=== PATIENT | male | born 1975 | race Caucasian/White ===

== ENCOUNTER 2020-09-14 10:05 | Inpatient (IN) | payer MEDICAID, SELFPAY ==
[~2020-09-14] VITALS: Ht 165.1 cm; Wt 114.8 kg
[2020-09-14 10:05] VITALS: BP 117/71
--- NOTE | 2020-09-14 10:05 | NUR ---
Patient BIBA ALS, transferred to bed 3. Dr. Tovar and RN are evaluating the patient at bedside.
[2020-09-14 10:10] VITALS: BP 125/82
--- NOTE | 2020-09-14 10:10 | NUR ---
BIBA ON CPAP PT WAS THEN PLACED ON VISION BIPAP SETTING 09/04 RR12 FIO2 100% ALARMS ON AND AUDIBLE BIPAP IS PLUGGED INTO RED OUTLET, B\S ARE DIMINISHED BILATERALLY, PT IS WEARING LARGE FACEMASK WILL CONTINUE TO MONITOR PT
[2020-09-14] MEDS ORDERED: ONDANSETRON 4 MG/2 ML VIAL IVP STA (10:11)
[2020-09-14] MEDS ORDERED: DEXAMETHASONE 10 MG/ML VIAL IVP STA (10:11)
[2020-09-14] MEDS ORDERED: OLANZapine 5 MG ODT SL ONE (10:15)
[2020-09-14] MEDS ORDERED: ASPIRIN 81 MG TAB.CHEW PO STA (10:17)
[2020-09-14] MEDS ORDERED: ACETAMINOPHEN EXTRA STRENGTH 500 MG TAB ONE (10:19)
[2020-09-14] MEDS ORDERED: AZITHROMYCIN 1,000 MG in DEXTROSE 5% 500 ML IV ONE (10:20)
--- NOTE | 2020-09-14 10:30 | NUR ---
44 Y/O BIBA FROM HOME FOR SOB/RESP DISTRESS X2 DAYS. RESP EVEN AND LABORED. TEMP 101.2 ORAL. LUNG SOUNDS DIMINISHED BILATERALLY. SKIN IS DIAPHORETIC. PT IS TACHYPNEIC AT THIS TIME, PLACED IN HIGH FOWLERS. HR IS SINUS TACH @ 150. CAP REFILL <3. PULSES PALPABLE +4.
--- NOTE | 2020-09-14 10:34 | NUR ---
RT AT BEDSIDE
[2020-09-14] MEDS ORDERED: cefTRIAXone 1,000 MG VIAL ONE (10:45)
--- NOTE | 2020-09-14 10:45 | NUR ---
PATIENT ATTEMPTING TO TAKE OFF BIPAP MASK, PT INSTRUCTED TO KEEP MASK ON. AAOX3.
[2020-09-14 10:54] LABS: HEMATOCRIT 51.9 % (36-52); HEMOGLOBIN 17.5 g/dL (12.0-18.0); MEAN CORPUSCULAR HEMOGLOBIN 31 pg (27-31); MEAN CORPUSCULAR HGB CONC 34 g/dL (33-37); MEAN CORPUSCULAR VOLUME 93.1 fL (80-94); PLATELET COUNT (AUTO) 287 K/uL (140-450); RED BLOOD CELL COUNT(AUTO) 5.57 MIL/uL (4.20-6.10); RED CELL DISTRIBUTION WIDTH 14.6 % (11.6-13.7); WHITE BLOOD COUNT (AUTO) 18.9 K/uL (4.8-10.8)
[2020-09-14] MEDS ORDERED: ACETAMINOPHEN 650 MG/20.3 ML UDC PO STA (10:54)
[2020-09-14] MEDS ORDERED: LORazepam 2 MG/ML VIAL IVP ONE (10:55)
--- NOTE | 2020-09-14 10:58 | NUR ---
Dr. Tovar is reevaluating the patient at bedside.
[2020-09-14 11:20] LABS: EOSINOPHILS % (MANUAL) 1 % (0-4); LYMPHOCYTES % (MANUAL) 8 % (20-46); MONOCYTES % (MANUAL) 5 % (5-12)
[2020-09-14 11:40] LABS: D-DIMER > 5000 ng/ml (0-400)
[2020-09-14 11:56] LABS: RSV NEGATIVE (NEGATIVE)
[2020-09-14 12:00] LABS: LACTATE DEHYDROGENASE 709 U/L (85-227)
--- NOTE | 2020-09-14 12:05 | NUR ---
UNABLE TO OBTAIN URINE SAMPLE AT THIS TIME
--- NOTE | 2020-09-14 12:06 | NUR ---
PT IS ATTEMPTING TO PULL OFF BIPAP MASK AT THIS TIME, INSTRUCTED IMPORTANCE OF KEEPING MASK ON. PT IS UNABLE TO FOLLOW COMMANDS AT THIS TIME. AAOX2
[2020-09-14 12:10] LABS: ALBUMIN 2.7 g/dL (3.4-5.0); ANION GAP 17.6 (8-16); CARBON DIOXIDE 22.4 mmol/L (21-32); CREATININE 1.4 mg/dL (0.6-1.3); TOTAL BILIRUBIN 0.6 mg/dL (0.0-1.0)
--- NOTE | 2020-09-14 13:08 | NUR ---
UNABLE TO OBTAIN URINE SAMPLE AT THIS TIME
[2020-09-14] MEDS ORDERED: HEPARIN PER PHARMACY MC PRN (13:15)
[2020-09-14] MEDS ORDERED: hePARIN / DEXT 5% PREMIX 250 ML IV ONE (13:15)
[2020-09-14 14:43] LABS: C-REACTIVE PROTEIN QUANT 20.8 mg/dL (0.0-0.9)
[2020-09-14] MEDS ORDERED: ALBUTEROL HFA MDI 90 MCG/ACTUATION 8 GM INH PRN (14:50)
[2020-09-14] MEDS ORDERED: DOCUSATE SODIUM 100 MG GELCAP PO PRN (14:50)
[2020-09-14] MEDS ORDERED: ONDANSETRON 4 MG/2 ML VIAL IM/IVP PRN (14:50)
[2020-09-14] MEDS ORDERED: POTASSIUM CHLORIDE 10 MEQ TABER PO PRN (14:50)
[2020-09-14] MEDS ORDERED: HYDROcodone/APAP 7.5/325 MG 1 TAB PO PRN (14:50)
[2020-09-14] MEDS ORDERED: ACETAMINOPHEN 325 MG TAB PO PRN (14:50)
[2020-09-14] MEDS ORDERED: NACL 0.9% 1,000 ML IV SCH (14:50)
[2020-09-14 14:57] LABS: FIBRINOGEN 617 mg/dL (200-400)
--- NOTE | 2020-09-14 15:25 | NUR ---
Patient appears to be resting comfortably in bed. Vital Signs within normal limits. Respirations even and unlabored.
[2020-09-14 15:36] VITALS: BP 104/62
[2020-09-14 16:33] LABS: CHOL/HDL RATIO 7.7 (1-4.5); FREE T4 (FREE THYROXINE) 1.68 ng/dL (0.76-1.46); MAGNESIUM 2.3 mg/dL (1.8-2.4); PHOSPHORUS 3.6 mg/dL (2.5-4.9); THYROID STIMULATING HORMONE 0.14 uIU/mL (0.34-3.74)
--- NOTE | 2020-09-14 17:44 | NUR ---
RESPIRATIONS REMAIN LABORED AND TACHYPNEIC, PT IS POSITIONED SITTING UP IN HIGH FOWLERS AT THIS TIME. WILL CONTINUE TO MONITOR
--- NOTE | 2020-09-14 17:48 | NUR ---
ADDED EMERGENCY CONTACTS CARSON JOSE [phone]
--- NOTE | 2020-09-14 18:39 | NUR ---
RESP EVEN AND LABORED/TACHYPNEIC. URINE COLLECTED AT THIS TIME. PT AWAKE AND ALERT, NO LONGER ATTEMPTING TO TAKE OFF BIPAP.
[2020-09-14 18:50] VITALS: BP 111/81
--- NOTE | 2020-09-14 18:58 | NUR ---
PATIENT PLACED PRONE AT THIS TIME
--- NOTE | 2020-09-14 19:30 | NUR ---
RECEIVED REPORT FROM SONIA HARRISON FOR CONTINUATION OF CARE.
--- NOTE | 2020-09-14 19:42 | NUR ---
PT IS RESTING IN PRONE POSITION. BED IS LOCKED AND IN LOWEST POSITION. PT IS CONNECTED TO THE VETERINARY VIROLOGIST. SAO2@91%. WILL CONTINUE TO MONITOR.
--- NOTE | 2020-09-14 20:30 | NUR ---
PT IS LAYING ON HIS LEFT SIDE. VISIBLE RISE AND FALL OF CHEST NOTED. BED IS LOCKED AND IN LOWEST POSITION. PT IS CONNECTED TO THE FOUNDER CEO & PRESIDENT. SAO2@91% ON BIPAP. CALL LIGHT WITHIN REACH. WILL CONTINUE TO MONITOR.
--- NOTE | 2020-09-14 21:30 | NUR ---
PT IS LAYING ON HIS LEFT SIDE. VISIBLE RISE AND FALL OF CHEST NOTED. BED IS LOCKED AND IN LOWEST POSITION. PT IS CONNECTED TO THE HOE WORKER. SAO2@93% ON BIPAP. CALL LIGHT WITHIN REACH. WILL CONTINUE TO MONITOR
--- NOTE | 2020-09-14 22:30 | NUR ---
PT IS LAYING ON HIS LEFT SIDE. VISIBLE RISE AND FALL OF CHEST NOTED. BED IS LOCKED AND IN LOWEST POSITION. PT IS CONNECTED TO THE HYDROGEOLOGY PROFESSOR. SAO2@92% ON BIPAP. CALL LIGHT WITHIN REACH. WILL CONTINUE TO MONITOR
--- NOTE | 2020-09-14 23:30 | NUR ---
PT IS LAYING ON HIS ABD. VISIBLE RISE AND FALL OF CHEST NOTED. BED IS LOCKED AND IN LOWEST POSITION. PT IS CONNECTED TO THE TUNNEL FORM PLACING SUPERVISOR. SAO2@91% ON BIPAP. CALL LIGHT WITHIN REACH. WILL CONTINUE TO MONITOR
--- NOTE | 2020-09-15 00:30 | NUR ---
PT IS LAYING ON HIS LEFT SIDE. VISIBLE RISE AND FALL OF CHEST NOTED. BED IS LOCKED AND IN LOWEST POSITION. PT IS CONNECTED TO THE REHAB PHYSICIAN. SAO2@90% ON BIPAP. CALL LIGHT WITHIN REACH. WILL CONTINUE TO MONITOR
--- NOTE | 2020-09-15 01:30 | NUR ---
PT IS LAYING ON HIS LEFT SIDE. VISIBLE RISE AND FALL OF CHEST NOTED. BED IS LOCKED AND IN LOWEST POSITION. PT IS CONNECTED TO THE SUBWAY TRAIN DRIVER. SAO2@91% ON BIPAP. CALL LIGHT WITHIN REACH. WILL CONTINUE TO MONITOR
[2020-09-15 01:49] VITALS: BP 114/70
--- NOTE | 2020-09-15 02:30 | NUR ---
PT IS LAYING ON HIS LEFT SIDE. VISIBLE RISE AND FALL OF CHEST NOTED. BED IS LOCKED AND IN LOWEST POSITION. PT IS CONNECTED TO THE WINDER HELPER. SAO2@93% ON BIPAP. CALL LIGHT WITHIN REACH. WILL CONTINUE TO MONITOR
--- NOTE | 2020-09-15 03:00 | NUR ---
PT REMAINS ON BIPAP. PT STILL GETS SOB WITH PHYSICAL EXERTION. FOLLOWS COMMANDS. HEPARIN DRIP CONT.
--- NOTE | 2020-09-15 03:29 | NUR ---
GAVE REPORT TO SONIA CERDA FOR TRANSFER OF CARE AT THIS TIME.
--- NOTE | 2020-09-15 03:30 | NUR ---
received report from brigitte navarro.
[2020-09-15 03:55] VITALS: BP 105/85
--- NOTE | 2020-09-15 06:00 | NUR ---
PT CHANGED, REPOSTIONED, AND PROVIDED WITH NEW SHEETS.
--- NOTE | 2020-09-15 06:54 | NUR ---
PATIENT HAS BEEN SCREENED AND CATEGORIZED MODERATE NUTRITION RISK. PATIENT WILL BE SEEN WITHIN 3-5 DAYS OF ADMISSION. 09/17/20 - 09/19/20 GWYN MOCK MBA, RD
--- NOTE | 2020-09-15 07:30 | NUR ---
HEPARIN DRIP HELD AT THIS TIME D/T NO UPDATED PTT LABS. CONTACTED
--- NOTE | 2020-09-15 07:34 | NUR ---
ASSUMED CARE OF PATIENT AT THIS TIME
[2020-09-15 08:07] LABS: T4 (THYROXINE) 8.8 ug/dL (4.5-12.0)
--- NOTE | 2020-09-15 09:07 | NUR ---
PT REMOVED BIPAP MASK OFF SELF, INSTRUCTED PT TO KEEP MASK ON D/T HYPOXIC STATE
[2020-09-15] MEDS ORDERED: cefTRIAXone 1,000 MG VIAL ONE (09:13)
[2020-09-15 09:24] LABS: BASOPHILS % (AUTO) 0.2 % (0.0-2.0); EOSINOPHILS % (AUTO) 0.1 % (0.0-4.0); HEMATOCRIT 48.5 % (36-52); HEMOGLOBIN 16.3 g/dL (12.0-18.0); LYMPHOCYTES # (AUTO) 0.7 K/uL (2.0-11.5); LYMPHOCYTES % (AUTO) 3.9 % (20.5-51.1); MEAN CORPUSCULAR HEMOGLOBIN 32 pg (27-31); MEAN CORPUSCULAR HGB CONC 34 g/dL (33-37); MEAN CORPUSCULAR VOLUME 94.6 fL (80-94); MONOCYTES # (AUTO) 0.5 K/uL (0.8-1.0); MONOCYTES % (AUTO) 3.1 % (1.7-9.3); NEUTROPHILS % (AUTO) 92.7 % (42.2-75.2); PLATELET COUNT (AUTO) 245 K/uL (140-450); RED BLOOD CELL COUNT(AUTO) 5.12 MIL/uL (4.20-6.10); RED CELL DISTRIBUTION WIDTH 14.7 % (11.6-13.7); WHITE BLOOD COUNT (AUTO) 17.3 K/uL (4.8-10.8)
[2020-09-15] MEDS: AZITHROMYCIN 250 MG TAB PO SCH (09:33)
[2020-09-15] MEDS: ASCORBIC ACID 500 MG TAB PO SCH (09:33)
[2020-09-15] MEDS: ZINC SULF 220 MG CAP PO SCH (09:33)
[2020-09-15 09:36] LABS: MAGNESIUM 2.6 mg/dL (1.8-2.4); PHOSPHORUS 3.4 mg/dL (2.5-4.9)
--- NOTE | 2020-09-15 11:02 | NUR ---
Patient appears to be resting comfortably in bed. Vital Signs within normal limits. Respirations even and unlabored.
--- NOTE | 2020-09-15 11:53 | NUR ---
SOCIAL WORK NOTE: Patient's Orientation Unable To Assess Information Provided By VAN JOSE - DAUGHTER Comments SW WAS UNABLE TO MEET PATIENT AT BEDSIDE DUE TO MEDICAL CONDITION. SW HAD ASSESSMENT WITH PATIENT'S DAUGHTER. Machine Grainer, Realtionship and Phone Number VAN JOSE DAUGHTER [phone] Healthcare Power of Spaghetti Machine Operator No Does Patient Have a POLST No Identifying Problems No Social Work Triggers Is A Social Work Consult Needed No Mandate Report Filed No Explanation Of Identifying Problems PATIENT IS A 44-YEAR-OLD MALE ADMITTED FOR ACUTE RESPIRATORY FAILURE. PATIENT HAS NO REPORTED PMHX. PATIENT'S DAUGHER REPORTED NO HISTORY OF SUBSTANCE ABUSE OR MENTAL HEALTH. Admitted From Home Pre-Admission Level Of Functioning Status Independent/Ambulatory Prior Resources/Services Used In Last 12 Months No Prior Resources Used Prior DME No Prior DME Used Dialysis Comments N/A Living Situation Lives With Family Mobile Home Other Living Situation/Comment PATIENT'S DAUGHTER REPORTED THAT PATIENT LIVES WITH HER AND HER MOTHER. Patient Had Caregiver No Home Support No Caregiver Issues Financial Issues No Known Financial Issue Referral To The Financial Counselor Needed No Factors/Needs No D/C Needs Identified Pt/Rep Participated In Discharge Plan Yes Patient/Family Agress With Discharge Plan Yes Discharge Plan Comments TENTATIVE DISCHARGE PLAN IS FOR PATIENT TO RETURN HOME. DC Plan Status Initiated
--- NOTE | 2020-09-15 12:00 | NUR ---
HEPARIN DRIP CONTINUED PER UPDATED PTT LABS
--- NOTE | 2020-09-15 12:11 | NUR ---
PT IS RESTING IN BED, HIGH FOWLERS, WITH BIPAP ON. NO ACUTE DISTRESS NOTED AT THIS TIME.
--- NOTE | 2020-09-15 13:56 | NUR ---
LUNCH TRAY PROVIDED AT BEDSIDE, PATIENT STATES HE IS NOT HUNGRY AT THIS TIME. TOOK OFF BIPAP MASK TO TRY AND ENCOURAGE PATIENT TO EAT, PT DRANK TWO CUPS OF WATER. VSS. BED IN LOWEST POSITION. NO ACUTE DISTRESS AT THIS TIME
--- NOTE | 2020-09-15 16:24 | NUR ---
PATIENT SITTING UP HIGH FOWLERS IN BED. RESP LABORED. BIPAP MASK IN PLACE. WATER AND FOOD PROVIDED TO PATIENT, HOWEVER PT IS STILL NOT HUNGRY AT THIS TIME.
--- NOTE | 2020-09-15 16:41 | NUR ---
DC PLANNIN YRS OLD MALE PATIENT ADMITTED FROM HOME WITH A DX OF ACUTE RESP FAILURE, PNEUMONIA R/O COVID. PT HAS NO MEDICAL HISTORY. CXR SHOWED POSSIBLE PNEUMONIA. RAPID COVID TEST NEGATIVE PCR IS PENDING. CURRENTLY ON BIPAP FIO2 100%. ADMINISTERED IV ABX ROCEPHIN AND AZITHROMYCIN . CONSULTED WITH CIVIL ENGINEER IN TRAINING FOR ELEVATED TROPONIN , PULMO AND ID. DC PLAN PER PT RESPONDING THE TREATMENT. CM TO FOLLOW Addendum: 09/20/20 at 1241 by Ambreen Garcia CM REMAINS ORALLY INTUBATED TO VENT, FIO2 100%, PEEP 14, O2 SAT 78%. SEDATED WITH PROPOFOL. ON HEPARIN DRIP. ON AZITHROMYCIN, REMDESIVIR, ROCEPHIN. LATEST CXR SHOWED WORSENED LEFT LUNG CONSOLIDATION, THERE IS IMPROVED AERATION OF THE RIGHT LUNG.
--- NOTE | 2020-09-15 19:20 | NUR ---
RECIEVED REPORT FROM HUNTER SCOTT FOR CONTINUITY OF CARE. PT A&0X4. PT ON BIPAP MACHINE. O2 SATURATION AT 90%. IV SITES LAC 16 G, INTACT PATENT, GOOD BLOOD RETURN. LHAND 22 G INFUSING HEPARIN DRIP AT 1500 UNITS/HR.
--- NOTE | 2020-09-15 21:30 | NUR ---
PT REQUESTING FOR WATER. PT TOLERATED WELL. WILL CONTINUE TO MONITOR.
[2020-09-15 23:05] VITALS: BP 121/83
--- NOTE | 2020-09-15 23:10 | NUR ---
RECEIVED CALL FROM PT'S DAUGHTER, LAUREN. UPDATED ON PT STATUS. ALL QUESTIONS AND CONCERNS ANSWERED AT THIS TIME.
--- NOTE | 2020-09-16 01:30 | NUR ---
PT HAS EYES CLOSED, ON BIPAP. O2 SATURATION 90%. SAFETY PRECAUTIONS IN PLACE. WILL CONTINUE TO MONITOR.
--- NOTE | 2020-09-16 03:20 | NUR ---
PT HAS EYES CLOSED, ON BIPAP. O2 SATURATION 90%. SAFETY PRECAUTIONS IN PLACE. WILL CONTINUE TO MONITOR.
--- NOTE | 2020-09-16 04:00 | NUR ---
LAB AT BEDSIDE
[2020-09-16 04:04] VITALS: BP 105/59
--- NOTE | 2020-09-16 05:00 | NUR ---
PTT 42.1. HEPARIN BOLUS 3300 UNITS GIVEN. AND HEPARIN DRIP INCREASED FROM 1800 UNITS TO 1200 UNITS. WILL CONTINUE TO MONITOR. Addendum: 09/16/20 at 1041 by [facility] PTT 42.1. HEPARIN BOLUS 3300 UNITS GIVEN. AND HEPARIN DRIP INCREASED FROM 1800 UNITS TO 2000 UNITS. WILL CONTINUE TO MONITOR.
--- NOTE | 2020-09-16 05:00 | NUR ---
URINE SPECIMEN COLLECTED AND SENT TO LAB
--- NOTE | 2020-09-16 07:18 | NUR ---
REPORT GIVEN TO MARIAMA SCOTT FOR CONTINUITY OF CARE
[2020-09-16 07:19] LABS: BARBITURATE, URINE NEGATIVE ng/ml (NEG <=200); BENZODIAZEPINE, URINE NEGATIVE ng/mL (NEG <=200); CANNABINOID, URINE NEGATIVE ng/mL (NEG <=50); COCAINE, URINE NEGATIVE ng/mL (NEG <=300); OPIATE, URINE NEGATIVE ng/mL (NEG <=2000); PHENCYCLIDINE SCREEN,URINE NEGATIVE ng/mL (NEG <=25)
[2020-09-16 07:22] LABS: APPEARANCE,URINE CLEAR (CLEAR); BILIRUBIN,URINE NEGATIVE (NEGATIVE); BLOOD, URINE NEGATIVE (NEGATIVE); COLOR,URINE YELLOW (YELLOW); LEUKOCYTE ESTERASE ,URINE NEGATIVE (NEGATIVE); NITRITE, URINE NEGATIVE (NEGATIVE); UGLUCOSE NEGATIVE (NEGATIVE)
--- NOTE | 2020-09-16 07:46 | NUR ---
RECEIVED REPORT FROM SONIA BURTON AND [facility]
--- NOTE | 2020-09-16 09:15 | NUR ---
GAVE PT MORNING MEDS. PT DESATED TO MID 50S WHEN BIPAP WAS TAKEN OFF. PT O2 LEVELS STABLE WHEN BIPAP WAS PLACED BACK ON
[2020-09-16] MEDS: AZITHROMYCIN 250 MG TAB PO SCH (09:27)
[2020-09-16] MEDS: ASCORBIC ACID 500 MG TAB PO SCH (09:27)
[2020-09-16] MEDS: ZINC SULF 220 MG CAP PO SCH (09:27)
[2020-09-16] MEDS ORDERED: cefTRIAXone 1,000 MG VIAL ONE (09:32)
--- NOTE | 2020-09-16 10:21 | NUR ---
PT REQUESTING WATER. PT TOLERATED WELL. PT DESATED TO 78 OFF BIPAP
[2020-09-16 11:04] VITALS: BP 95/49
--- NOTE | 2020-09-16 11:23 | NUR ---
PT IS RESTING WITH EYES CLOSED, ON BIPAP. O2 SATURATION 89%. SAFETY PRECAUTIONS IN PLACE.
[2020-09-16 12:22] VITALS: BP 119/79
--- NOTE | 2020-09-16 13:15 | NUR ---
PT DAUGHTER CALLED FOR UPDATES
--- NOTE | 2020-09-16 13:25 | NUR ---
OFFERED PT LUNCH TRAY. PT REFUSED. ADVISED THAT HE HAS NO APPETITE AT THIS TIME. OFFERED OTHER ALTERNATIVES AND PT DECLINED.
--- NOTE | 2020-09-16 14:15 | NUR ---
PT SLEEPING WITH BIPAP IN PLACE. O2 SATURATION 89%. BEDRAILS UP X2 AND BED IN LOWEST POSITION FOR SAFETY.
[2020-09-16] MEDS: hePARIN / DEXT 5% PREMIX 250 ML IV SCH (15:52)
--- NOTE | 2020-09-16 17:28 | NUR ---
PT IN BED AWAKE AND ALERT. PT REQUESTED WATER AND TOLERATED WELL. PT ON BIPAP. SIDE RAILS UP AND BED IN LOWEST POSITION. ALL PT NEEDS MET AT THIS TIME.
[2020-09-16 18:50] LABS: PROTHROMBIN TIME 10.4 secs (10.8-13.4)
--- NOTE | 2020-09-16 18:56 | NUR ---
PT REQUESTED WATER. WATER WAS GIVEN AND PT TOLERATED WELL. PT REMAINS ON BIPAP. VSS.
[2020-09-16 19:00] VITALS: BP 120/64
--- NOTE | 2020-09-16 19:15 | NUR ---
REPORT RECEIVED FROM MARIAMA SCOTT FOR CONTINUITY OF CARE
--- NOTE | 2020-09-16 20:45 | NUR ---
RECEIVED CALL FROM LAB, FROZEN PLASMA ORDER IS A 5-7 DAYS WAIT TIME.
--- NOTE | 2020-09-16 21:15 | NUR ---
Positive COVID-19 test results were received from lab. A copy of the test results were given to Infection Control.
[2020-09-16 22:00] VITALS: BP 120/64
--- NOTE | 2020-09-16 22:34 | NUR ---
LAB AT BEDSIDE
--- NOTE | 2020-09-17 00:55 | NUR ---
PT REQUESTING FOR WATER. PT TOLERATED WELL.
--- NOTE | 2020-09-17 02:45 | NUR ---
PTT 21. HEPARIN BOLUS 6,000 UNITS GIVEN. HEPARIN INCREASED FROM 300 UNITS TO 600 UNITS.
--- NOTE | 2020-09-17 04:58 | NUR ---
PT ON BIPAP MACHINE, EYES CLOSED. RESPIRATIONS EVEN AND UNLABORED. CHEST RISE IS SYMMETRICAL. VSS. WILL CONTINUE TO MONITOR.
--- NOTE | 2020-09-17 06:00 | NUR ---
PT DESATURATING TO 77%. ENCOURAGED PT TO BE IN PRONE POSITION. PT O2 SATURATION NOW AT 94%. WILL CONTINUE TO MONITOR.
--- NOTE | 2020-09-17 06:39 | NUR ---
DR RIVERA AT BEDSIDE EVALUTING PT
--- NOTE | 2020-09-17 07:21 | NUR ---
REPORT GIVEN TO VISHNU SCOTT FOR CONTINUITY OF CARE
--- NOTE | 2020-09-17 07:22 | NUR ---
Report received from SONIA Bardales. Transfer of care at this time.
--- NOTE | 2020-09-17 07:22 | NUR ---
Ernestina stephens in [facility] - 09/17/20 at 0729 by [facility] Report received from SONIA Ortez. Transfer of care at this time.
[2020-09-17 08:22] VITALS: BP 132/66
[2020-09-17 08:25] LABS: EOSINOPHILS % (AUTO) 0.1 % (0.0-4.0); HEMATOCRIT 46.3 % (36-52); HEMOGLOBIN 15.6 g/dL (12.0-18.0); LYMPHOCYTES # (AUTO) 0.3 K/uL (2.0-11.5); LYMPHOCYTES % (AUTO) 2.2 % (20.5-51.1); MEAN CORPUSCULAR HEMOGLOBIN 31 pg (27-31); MEAN CORPUSCULAR HGB CONC 34 g/dL (33-37); MEAN CORPUSCULAR VOLUME 92.7 fL (80-94); MONOCYTES # (AUTO) 0.5 K/uL (0.8-1.0); MONOCYTES % (AUTO) 3.7 % (1.7-9.3); NEUTROPHILS # (AUTO) 13.8 K/uL (1.8-7.7); PLATELET COUNT (AUTO) 178 K/uL (140-450); RED CELL DISTRIBUTION WIDTH 14.7 % (11.6-13.7); WHITE BLOOD COUNT (AUTO) 14.7 K/uL (4.8-10.8)
--- NOTE | 2020-09-17 08:33 | NUR ---
Pt BIPAP re-adjusted after O2 sats dropped from 88% to 65%, teaching given to pt to not remove. O2 89% after re-assessment.
[2020-09-17 08:53] LABS: ALBUMIN 2.5 g/dL (3.4-5.0); ANION GAP 13.2 (8-16); CARBON DIOXIDE 26.9 mmol/L (21-32); CREATININE 0.8 mg/dL (0.6-1.3); POTASSIUM 4.1 mmol/L (3.5-5.1); TOTAL BILIRUBIN 0.7 mg/dL (0.0-1.0)
[2020-09-17] MEDS: COMMUNICATION ORDER MC SCH (09:00)
[2020-09-17] MEDS: ZINC SULF 220 MG CAP PO SCH (09:33)
[2020-09-17] MEDS: AZITHROMYCIN 250 MG TAB PO SCH (09:33)
[2020-09-17] MEDS: ASCORBIC ACID 500 MG TAB PO SCH (09:33)
--- NOTE | 2020-09-17 10:18 | NUR ---
Pt eyes closed, equal rise and fall of chest, VSS, will continue to monitor.
[2020-09-17 10:40] VITALS: BP 111/69
[2020-09-17] MEDS ORDERED: remdesivir CLINICAL MONITORING 1 EA MISC MC PRN (11:00)
[2020-09-17] MEDS ORDERED: cefTRIAXone 1,000 MG VIAL ONE (11:07)
[2020-09-17 13:09] LABS: PROTHROMBIN TIME 10.1 secs (10.8-13.4)
--- NOTE | 2020-09-17 13:31 | NUR ---
PTT 21.7. HEPARIN BOLUS 6000 UNITS GIVEN. HEPARIN DRIP INCREASED FROM 600 UNITS TO 1000 UNITS. WILL CONTINUE TO MONITOR.
[2020-09-17 14:35] VITALS: BP 121/71
--- NOTE | 2020-09-17 14:48 | NUR ---
Dr. Guzman, [facility] community midwife at pt bedside for evaluation and pt updates.
--- NOTE | 2020-09-17 15:15 | NUR ---
Pt removed Bipap O2 sat down to 75%, re-applied mask O2 back to 88% on 15L BIPAP. Pt instructed to not remove mask.
[2020-09-17] MEDS ORDERED: REMDESIVIR (EUA) 200 MG in NACL 0.9% 100 ML IV SCH (15:30)
--- NOTE | 2020-09-17 16:31 | NUR ---
Pt sleeping, visible equal rise and fall of chest, VSS, will continue to monitor.
--- NOTE | 2020-09-17 18:14 | NUR ---
Pt removed BIPAP O2 from 92% to 81%, reapplied BIPAP O2 89%, re-educated pt to not take mask off. Will continue to monitor.
--- NOTE | 2020-09-17 19:21 | NUR ---
Gave report to SONIA Ortez, transfered care at this time.
[2020-09-17 19:25] VITALS: BP 144/96
--- NOTE | 2020-09-17 21:30 | NUR ---
pt linens and gowns changed.
[2020-09-17 21:32] VITALS: BP 162/109
--- NOTE | 2020-09-17 22:20 | NUR ---
pt sleeping. BIPAP remains on and no change in settings. pt appears to be in no distress at this time.
[2020-09-17 23:10] VITALS: BP 139/97
[2020-09-18 01:06] LABS: PROTHROMBIN TIME 10.4 secs (10.8-13.4)
--- NOTE | 2020-09-18 07:40 | NUR ---
HAND OFF REPORT RECEIVED FROM AYLA SCOTT. PATIENT ON BIPAP AT THIS TIME, AWAKE AND ALERT, PATIENT IS REQUESTING WATER AT THIS TIME. AAOX4. DOES NOT REPORT ANY PAIN. NO ACUTE DISTRESS NOTED AT THIS TIME. VSS. BED IN LOWEST POSITION.
[2020-09-18 09:00] VITALS: BP 128/98
[2020-09-18] MEDS ORDERED: cefTRIAXone 1,000 MG VIAL ONE (09:14)
[2020-09-18] MEDS: COMMUNICATION ORDER MC SCH (09:28)
[2020-09-18] MEDS: ASCORBIC ACID 500 MG TAB PO SCH (09:28)
[2020-09-18] MEDS: AZITHROMYCIN 250 MG TAB PO SCH (09:28)
[2020-09-18] MEDS: ZINC SULF 220 MG CAP PO SCH (09:28)
--- NOTE | 2020-09-18 09:30 | NUR ---
DR BARRETT MADE AWARE REGARDING PATIENTS DECLING SPO2 ON BIPAP. PT SP02 IS 81% AT THIS TIME. NO ORDERS PLACED AT THIS TIME.
[2020-09-18 09:42] LABS: PROTHROMBIN TIME 10.2 secs (10.8-13.4)
[2020-09-18 12:15] VITALS: BP 128/98
--- NOTE | 2020-09-18 13:31 | NUR ---
LUNCH TRAY PROVIDED AT BEDSIDE, VSS, PT IS RESTING WITH EYES CLOSED, RESP EVEN AND UNLABORED. NO RESP DISTRESS NOTED AT THIS TIME
--- NOTE | 2020-09-18 15:50 | NUR ---
PATIENT AWAKE AND ALERT, RESP EVEN AND UNLABORED. PATIENT STATES HE IS FEELING BETTER. SKIN COOL/DRY. VSS. BED IN LOWEST POSITION, ALL NEEDS MET AT THIS TIME
[2020-09-18] MEDS: REMDESIVIR (EUA) 100 MG in NACL 0.9% 100 ML IV SCH (16:02)
--- NOTE | 2020-09-18 16:02 | NUR ---
20G IV PLACED IN LEFT HAND
[2020-09-18] MEDS: DEXT 5% /NACL 0.9% 1,000 ML IV SCH (17:24)
[2020-09-18 17:45] LABS: PROTHROMBIN TIME 10.9 secs (10.8-13.4)
[2020-09-18 18:37] LABS: PROTHROMBIN TIME 11.1 secs (10.8-13.4)
--- NOTE | 2020-09-18 19:29 | NUR ---
REPORT RECEIVED FROM SONIA HARRISON FOR CONTINUATION OF CARE.
--- NOTE | 2020-09-18 19:32 | NUR ---
PT RESTING IN BED, LOCKED AND IN LOWEST POSITION, HOB ELEVATED, SIDE RAIL X2 FOR PT SAFETY. NO ACUTE DISTRESS. VSS.
--- NOTE | 2020-09-18 19:48 | NUR ---
RT AT BEDSIDE FOR RESPIRATORY ASSESSMENT.
[2020-09-18 19:51] VITALS: BP 137/82
--- NOTE | 2020-09-18 20:30 | NUR ---
pt resting in bed, locked and in lowest position, HOb elevated side rail x2 for pt safety. No acute distress noted.
--- NOTE | 2020-09-18 21:15 | NUR ---
Pt repositioned for comfort. no acute distress noted. VSS.
[2020-09-18 22:39] VITALS: BP 133/93
--- NOTE | 2020-09-18 22:50 | NUR ---
Pt resting in bed, locked and in lowest position , HOB elevated , side rail x 2 for pt safety. No acute distress noted.
--- NOTE | 2020-09-18 23:55 | NUR ---
Pt laying w/ eyes closed , bed locked and in lowest position, HOB elevated, side rail x 2 for pt safety. Visible rise and fall of chest, RR even and unlabored. NO acute distress noted.
[2020-09-19] VITALS (7 sets, daily range): BP systolic 89–172; BP diastolic 60–126
--- NOTE | 2020-09-19 00:30 | NUR ---
PT RESTING IN BED, HOB ELEVATED, SIDE RAIL X 2 . PT PROVIDED URINAL AT THIS TIME.
--- NOTE | 2020-09-19 01:45 | NUR ---
PT RESTING IN BED, LOCKED AND IN LOWEST POSITION, VISIBLE RISE AND FALL OF CHEST. NO ACUTE DISTRESS NOTED.
--- NOTE | 2020-09-19 02:15 | NUR ---
PT REPOSITIONED FOR COMFORT. NO ACUTE DISTRESS NOTED.
--- NOTE | 2020-09-19 03:45 | NUR ---
PT RESTING IN BED, HOB ELEVATED, SIDE RAIL X2 . PT BIBPAP MASK ON , SAO2 84%. NO ACUTE DISTRESS AT THIS TIME.
--- NOTE | 2020-09-19 04:26 | NUR ---
PT RESTING W/ EYES CLOSED, AROUSABLE TO VERBAL STIMULATION, HOB ELEVATED, SIDE RAIL X2 FOR PT SAFETY.
--- NOTE | 2020-09-19 05:25 | NUR ---
PT C/O OF HAVING HARD TIME BREATHING. OBSERVED UNSEALED BIPAP MASK. ERMD AT BEDSIDE FOR ASSESSMENT. RT CALLED FOR NEW BIPAP MASK.
--- NOTE | 2020-09-19 05:51 | NUR ---
500 ML OF URINE EMPTIED FROM URINAL AT THIS TIME. NEW URINAL PROVIDED TO PT.
--- NOTE | 2020-09-19 06:45 | NUR ---
PT RR 45/ MIN . PT RR EVEN AND LABORED. PT STATES HE IS HAVING A HARD TIME BREATHING. PT SAO2 HAS NOT BEEN ABOVE 85% IN LAST 3 HRS.
[2020-09-19 06:47] LABS: PROTHROMBIN TIME 11.2 secs (10.8-13.4)
--- NOTE | 2020-09-19 06:55 | NUR ---
CALLED DR. BARRETT REGARDING PT STATUS AT THIS TIME.
--- NOTE | 2020-09-19 07:00 | NUR ---
PER DR. BARRETT INTUBATE PT BASED ON TRENDING DOWN OXYGEN SATURATION AND ELEVATED HEART RATE. INFORM FAMILY AT THIS TIME .
[2020-09-19] MEDS ORDERED: INTUBATION KIT MC ONE (07:29)
--- NOTE | 2020-09-19 07:30 | NUR ---
REPORT PROVIDED TO SONIA MARES FOR CONTINUATION OF CARE.
--- NOTE | 2020-09-19 07:31 | NUR ---
Report received from SONIA Alvarez, transfered care at this time.
--- NOTE | 2020-09-19 07:36 | NUR ---
Spoke with family and Gilma Issa for intubation consent for pt. Witnessed by SONIA Alvarez and Luciana SCOTT.
--- NOTE | 2020-09-19 07:46 | NUR ---
Dr. Resendiz, RT and RN are at bedside for endotracheal intubation.
--- NOTE | 2020-09-19 07:48 | NUR ---
Pushed rocoronium 80mg first IVP per Dr. Resendiz order. Pushed etomidate 20mg second IVP per Dr. Resendiz orders.
--- NOTE | 2020-09-19 07:49 | NUR ---
Pt intubated, Dr. Resendiz listening for equal breath sounds with stethescope.
--- NOTE | 2020-09-19 07:50 | NUR ---
Size 8 intubated at 24cm at teeth. OGT placed size 14. Placed order for chest xray to verify placement.
--- NOTE | 2020-09-19 07:55 | NUR ---
Pt on assist control fiO2 100%, rate 20mm, 8 peep.
[2020-09-19] MEDS ORDERED: ETOMIDATE 20 MG/10 ML VIAL IVP ONE (08:00)
[2020-09-19] MEDS ORDERED: ROCURONIUM 50 MG/5 ML VIAL IV ONE (08:00)
[2020-09-19] MEDS ORDERED: PROPOFOL 1000 MG/100 ML PREMIX 100 ML IV ONE (08:03)
[2020-09-19] MEDS: PROPOFOL 1000 MG/100 ML PREMIX 100 ML IV PRN ×4 (08:05→18:48)
--- NOTE | 2020-09-19 08:24 | NUR ---
Soft-restraints placed on pt for safety.
--- NOTE | 2020-09-19 08:26 | NUR ---
Chest x-ray at bedside.
--- NOTE | 2020-09-19 08:39 | NUR ---
Coyle 16F placed with sterile technique. 100mL urine output.
--- NOTE | 2020-09-19 08:45 | NUR ---
MORPHINE DRIP INITIATED AT 1MG/HR - PRIMARY NURSE MADE AWARE.
[2020-09-19] MEDS ORDERED: MORPHINE SULFATE 50 MG in NACL 0.9% 45 ML IV PRN (08:50)
[2020-09-19] MEDS: DEXT 5% /NACL 0.9% 1,000 ML IV SCH ×4 (08:52→20:26)
[2020-09-19] MEDS: ZINC SULF 220 MG CAP PO SCH (09:00)
[2020-09-19] MEDS: ASCORBIC ACID 500 MG TAB PO SCH (09:00)
[2020-09-19] MEDS: AZITHROMYCIN 250 MG TAB PO SCH (09:00)
--- NOTE | 2020-09-19 09:05 | NUR ---
PTT 25 , INCREASED HEPARIN DRIP TO 1300 UNITS PER PROTOCOL. NEW PT / PTT Q6HR LAB ORDERED PER HEPARIN PROTOCOL.
--- NOTE | 2020-09-19 09:05 | NUR ---
PER PHARMACY PT/PTT LAB DRAW SHOULD BE AT 1500 - CANCELLED AND PLACED CORRECT LAB ORDER AT THIS TIME.
--- NOTE | 2020-09-19 09:30 | NUR ---
PATIENT HAS BEEN SCREENED AND CATEGORIZED MODERATE NUTRITION RISK. PATIENT WILL BE SEEN WITHIN 3-5 DAYS OF ADMISSION. 09/19/[address]
[2020-09-19] MEDS ORDERED: cefTRIAXone 1,000 MG VIAL ONE (10:22)
--- NOTE | 2020-09-19 15:01 | NUR ---
DR. BARRETT APPROVED RD RECOMMENDATIONS FOR TUBE FEEDING WITH JEVITY 1.2 @ 60 ML/HR.
--- NOTE | 2020-09-19 15:26 | NUR ---
09/19/20 RD INITIAL ASSESSMENT COMPLETED PLEASE REFER TO NUTRITION ASSESSMENT UNDER CARE ACTIVITY FOR ESTIMATED NUTRITIONAL NEEDS. 1. RECOMMEND JEVITY 1.2 @ 60 ML/HR. START AT 10 ML/HR, ADVANCE BY 10 Q6H -THIS WILL PROVIDE 1440 ML OF VOLUME, 1162 ML OF WATER, 1728 KCAL, AND 80 GM OF PROTEIN. MEETING >80% OF KCAL AND PROTEIN NEEDS 2. RECOMMEND FREE WATER FLUSH OF [address] TO FOLLOW-UP 2-3 DAYS, HIGH RISK SYED MARRERO RD
[2020-09-19 15:31] LABS: EOSINOPHILS % (AUTO) 0.1 % (0.0-4.0); HEMATOCRIT 46.1 % (36-52); HEMOGLOBIN 15.4 g/dL (12.0-18.0); LYMPHOCYTES # (AUTO) 0.3 K/uL (2.0-11.5); LYMPHOCYTES % (AUTO) 1.7 % (20.5-51.1); MEAN CORPUSCULAR HEMOGLOBIN 31 pg (27-31); MEAN CORPUSCULAR HGB CONC 34 g/dL (33-37); MEAN CORPUSCULAR VOLUME 93.1 fL (80-94); MONOCYTES # (AUTO) 0.9 K/uL (0.8-1.0); MONOCYTES % (AUTO) 4.4 % (1.7-9.3); NEUTROPHILS # (AUTO) 18.1 K/uL (1.8-7.7); NEUTROPHILS % (AUTO) 93.8 % (42.2-75.2); PLATELET COUNT (AUTO) 128 K/uL (140-450); RED BLOOD CELL COUNT(AUTO) 4.95 MIL/uL (4.20-6.10); RED CELL DISTRIBUTION WIDTH 14.7 % (11.6-13.7); WHITE BLOOD COUNT (AUTO) 19.3 K/uL (4.8-10.8)
--- NOTE | 2020-09-19 15:33 | NUR ---
PTT 30.6, heparin drip increased to 1600 units per protocol in MD order.
[2020-09-19 15:47] LABS: ALBUMIN 2.2 g/dL (3.4-5.0); ANION GAP 11.2 (8-16); CARBON DIOXIDE 26.3 mmol/L (21-32); CREATININE 0.9 mg/dL (0.6-1.3); POTASSIUM 4.5 mmol/L (3.5-5.1); TOTAL BILIRUBIN 0.9 mg/dL (0.0-1.0)
--- NOTE | 2020-09-19 15:51 | NUR ---
PICC LINE INSERTED BY PICC NURSE, WAITING FOR XRAY
--- NOTE | 2020-09-19 16:47 | NUR ---
Tube feeding Migdaliaita initiated by OGT.
[2020-09-19] MEDS: REMDESIVIR (EUA) 100 MG in NACL 0.9% 100 ML IV SCH (17:38)
--- NOTE | 2020-09-19 18:36 | NUR ---
See EMAR and IV spreadsheet for all vitals [id number].
--- NOTE | 2020-09-19 19:35 | NUR ---
Gave report to SONIA Yanez, transfered all care at this time.
--- NOTE | 2020-09-19 19:36 | NUR ---
RECEIVED REPORT FROM SNOIA MARES AND ASSUMED CARE.
[2020-09-19 21:30] LABS: PROTHROMBIN TIME 13.6 secs (10.8-13.4)
--- NOTE | 2020-09-19 21:52 | NUR ---
CHANGED PROPOFOL BOTTLE
--- NOTE | 2020-09-19 21:54 | NUR ---
PT STILL INTUBATED AT THIS TIME. PT IS RAAS -3. Pt on assist control fiO2 100%, rate 20mm, 8 peep.
--- NOTE | 2020-09-19 23:28 | NUR ---
PT O2 LEVELS DECREASED TO 78. PT FIGHTING VENT. INCREASED PROPAFOL AND MORPHINE.
[2020-09-20] MEDS: DEXT 5% /NACL 0.9% 1,000 ML IV SCH ×3 (02:40→16:23)
--- NOTE | 2020-09-20 02:40 | NUR ---
PT WAS BAGGED W/ PEEP 15 DUE TO SPO2 DESAT TO 70s AND HIGHEST SPO2 WAS 86%
--- NOTE | 2020-09-20 03:03 | NUR ---
ABG DRAWN ON PT DUE TO LOW SATs DR VIEYRA WAS INFORMED OF RESULTS AND AGREED TO TITRATE PEEP TO 14 WILL CONTINUE TO MONITOR
[2020-09-20 03:11] VITALS: BP 86/59
[2020-09-20] MEDS ORDERED: MORPHINE SULFATE 10 MG/ML VIAL ONE (05:09)
--- NOTE | 2020-09-20 05:14 | NUR ---
PT RESTING IN BED AT THIS TIME WITH NRB RUNNING AT 15L. VSS.
--- NOTE | 2020-09-20 07:15 | NUR ---
REPORT GIVEN TO SONIA RUIZ
[2020-09-20] MEDS ORDERED: cefTRIAXone 1,000 MG VIAL ONE (08:42)
[2020-09-20] MEDS ORDERED: hePARIN / DEXT 5% PREMIX 250 ML IV ONE (08:47)
[2020-09-20] MEDS: hePARIN / DEXT 5% PREMIX 250 ML IV SCH (09:05)
[2020-09-20 09:30] VITALS: BP 100/62
--- NOTE | 2020-09-20 09:30 | NUR ---
RECEIVED ON CARESCAPE R860 VENTILATOR PLUGGED INTO RED OUTLET TOLERATING WELL WITHOUT ADVERSE REACTIONS NOTED TO AN ENDOTRACHEAL TUBE #8.0 SECURED AT 24cm TEETH/GUM LINE WITH AN ANCHOR FAST CUFF PRESSURE CHECKED NOTED AMBU BAG AT BEDSIDE LOC SEDATED RESTING COMFORTABLY EQUAL CHEST RISE AIRWAY PATENT
[2020-09-20] MEDS ORDERED: CRUSHER, PILL MC ONE ×2 (09:37→15:06)
[2020-09-20] MEDS: ASCORBIC ACID 500 MG TAB PO SCH (09:57)
[2020-09-20] MEDS: ZINC SULF 220 MG CAP PO SCH (09:57)
[2020-09-20] MEDS: AZITHROMYCIN 250 MG TAB PO SCH (09:58)
[2020-09-20 10:13] LABS: ALBUMIN 2.1 g/dL (3.4-5.0); ANION GAP 12.5 (8-16); CARBON DIOXIDE 25.9 mmol/L (21-32); CREATININE 0.9 mg/dL (0.6-1.3); POTASSIUM 4.4 mmol/L (3.5-5.1); TOTAL BILIRUBIN 0.7 mg/dL (0.0-1.0)
--- NOTE | 2020-09-20 12:40 | NUR ---
LAB AT BEDSIDE DRAWING PTT
[2020-09-20] MEDS ORDERED: MORPHINE SULFATE 100 MG in NACL 0.9% 90 ML IV PRN (13:50)
[2020-09-20] MEDS ORDERED: MORPHINE SULFATE 100 MG in NACL 0.9% 100 ML IV PRN (13:50)
[2020-09-20 13:58] VITALS: BP 95/70
--- NOTE | 2020-09-20 13:58 | NUR ---
SEDATED STABLE EQUAL CHEST RISE AIRWAY PATENT
[2020-09-20 14:33] LABS: PROTHROMBIN TIME 10.3 secs (10.8-13.4)
--- NOTE | 2020-09-20 15:00 | NUR ---
PATIENT FEBRILE AT 101.0 AT THIS TIME, HR 150S GIVEN TYLENOL PRN VIA OGT
[2020-09-20] MEDS: PROPOFOL 1000 MG/100 ML PREMIX 100 ML IV PRN ×5 (15:54→20:00)
--- NOTE | 2020-09-20 16:16 | NUR ---
REPORT GIVEN TO SONIA HARRISON. TRANSFER OF CARE AT THIS TIME.
--- NOTE | 2020-09-20 17:00 | NUR ---
PT RASS -3, ETT TO VENT, SP02 95%, NO ACUTE DISTRESS AT THIS TIME. PATIENT UNABLE TO TOLERATE SIDE LAYING POSITION DUE TO DROP IN SP02 TO 86% ON RIGHT SIDE LAYING POSITION. COOLING MEASURES IMPLEMENTED AT THIS TIME D/T FEVER REPORTED FROM JOSEPH SCOTT. TEMP IS 100.3F ORALLY AT THIS TIME
[2020-09-20] MEDS: REMDESIVIR (EUA) 100 MG in NACL 0.9% 100 ML IV SCH (17:17)
[2020-09-20 17:23] VITALS: BP 108/68
--- NOTE | 2020-09-20 17:23 | NUR ---
SEDATED GOOD CHEST RISE AIRWAY PATENT
--- NOTE | 2020-09-20 19:24 | NUR ---
RECEIVED REPORT FROM HUNTER RN, PT, SEDATED RASS -3. ETT TO VENT. FIO2 100%. IV SITE ALEXX PICC INFUSING MORPHINE 8MG, PROPOFOL 50 MCG/KG/MIN, HEPARIN 100 UNITS. LAC 18G, AND LHAND 20G, INTACT, PATENT, GOOD BLOOD RETURN, SALINE LOCKED. OGT IN PLACE. YIP CATHETER IN PLACE. WILL CONTINUE TO MONITOR.
--- NOTE | 2020-09-20 19:24 | NUR ---
PT ENDORSED TO JOSEPHINE SCOTT
[2020-09-20 19:32] LABS: PROTHROMBIN TIME 21.2 secs (10.8-13.4)
[2020-09-20] MEDS ORDERED: NACL 0.9% 500 ML IV STA (19:51)
[2020-09-20] MEDS ORDERED: NOREPINEPHRINE 8 MG in DEXTROSE 5% 250 ML IV PRN (19:55)
[2020-09-20] MEDS ORDERED: NOREPINEPHRINE 4 MG/4 ML VIAL IV ONE (20:33)
[2020-09-20 20:36] VITALS: BP 60/34
--- NOTE | 2020-09-20 20:40 | NUR ---
PT CODED AT THIS TIME, SEE CODE BLUE SHEET.
[2020-09-20] MEDS ORDERED: DOPamine 400 MG/D5W PREMIX 250 ML IV ONE (21:00)
[2020-09-20] MEDS ORDERED: MORPHINE SULFATE 50 MG in NACL 0.9% 45 ML IV PRN (21:00)
--- NOTE | 2020-09-20 21:10 | NUR ---
CALLED FAMILY SPOKE WITH LAUREN, MADE AWARE OF PATIENT CODED.
[2020-09-20 21:15] VITALS: BP 64/31
--- NOTE | 2020-09-20 21:19 | NUR ---
TIME OF CALLED BY DR JENKINS AT THIS TIME. [id number].
--- NOTE | 2020-09-20 21:30 | NUR ---
CALLED FAMILY, NOTIFIED OF PT'S .
--- NOTE | 2020-09-20 23:11 | NUR ---
S/W [employer], not eligible for donor. # [id number], reference number
--- NOTE | 2020-09-20 23:30 | NUR ---
s/w Keisha, farm loan representative from [employer] office, stated fast food cook will give a call back. No ETA .
[2020-09-21] MEDS ORDERED: PIPERACILLIN/TAZOBACTAM 3.375 GM in DEXTROSE 5% 50 ML IV SCH ×2
--- NOTE | 2020-09-21 00:25 | NUR ---
RECEIVED CALL FROM [facility]. CASE REVIEWED BY CORONOR. NO CASE NUMBER GIVEN. BODY RELEASED BY [employer].
--- NOTE | 2020-09-21 05:59 | NUR ---
BODY WAS TAKEN BY NICKOLAS GALLEGOS
== END 2020-09-20 21:19 | DRG 720 ==
LOC: MED 10:05 → MTU 14:46
PROVIDERS: ADMIT Emergency Medicine; ATTEND Emergency Medicine
PROC: 5A09557 Assistance with Respiratory Ventilation, Greater than 96 Consecutive Hours, Continuous Positive Airway Pressure (ICD-10-PCS; 2020-09-14)
PROC: 0BH17EZ Insertion of Endotracheal Airway into Trachea, Via Natural or Artificial Opening (ICD-10-PCS; 2020-09-19)
PROC: 5A1935Z Respiratory Ventilation, Less than 24 Consecutive Hours (ICD-10-PCS; 2020-09-19)
PROC: XW033E5 Introduction of Remdesivir Anti-infective into Peripheral Vein, Percutaneous Approach, New Technology Group 5 (ICD-10-PCS; principal; 2020-09-20)
DX: A41.9 Sepsis, unspecified organism (principal); U07.1 COVID-19; J12.89 Other viral pneumonia; I46.9 Cardiac arrest, cause unspecified; N17.0 Acute kidney failure with tubular necrosis; J96.01 Acute respiratory failure with hypoxia; E87.2 Acidosis; I21.4 Non-ST elevation (NSTEMI) myocardial infarction; I10 Essential (primary) hypertension; R00.0 Tachycardia, unspecified
CPT/HCPCS: 36415; 36600; 71045; 80053; 80305; 81003; 82550; 82728; 82803; 83036; 83605; 83615; 83735; 83880; 84100; 84436; 84439; 84443; 84479; 84484; 85025; 85379; 85384; 85610; 85651; 85730; 86140; 86886; 86900; 86901; 87086; 87420; 87804; 94003; 94660; 96365; 96367; 96375; 99291; 99292; J0696; J1100; J1642; J1644; J2060; J2270; J2405; J2543; J2704; J3490; J7060; U0003